=== PATIENT | female | born 1995 | race Caucasian/White ===

== ENCOUNTER 2019-05-26 14:54 | Emergency (ER) | payer OTHER, SELFPAY ==
[2019-05-26 14:55] VITALS: BP 132/64; PULSE 82; RESP 14; TEMP 36.9; O2SAT 99
--- NOTE | 2019-05-26 15:26 | ED_ITS ---
HPI - Nausea/Vomiting/Diarrhea <BRIGITTE Beckman - Last Filed: 05/26/19 17:56> General Chief complaint: Nausea/Vomiting/Diarrhea Stated complaint: BAD DIARRHEA STOMACH PAIN Time Seen by Provider: 05/26/19 14:55 Source: patient Mode of arrival: Ambulatory Limitations: no limitations History of Present Illness HPI Narrative: The patient is a 23-year-old female nonsmoker who denies any p ertinent medical history presents with a chief complaint of diarrhea onset this morning. She states she has had 7-8 episodes of watery diarrhea throughout the day. She has not taken anything to feel better at home. She denies any fevers. She complains of nausea, no vomiting. She wonders if is related to the fast food that she ate last night. She complains of abdominal cramping, only associated with diarrhea episodes. She denies any possibility of . She denies any dysuria urgency or frequency. Related Data Home Medications Medication Instructions Recorded Confirmed clindamycin phosphate 1 applic TOPICAL DIRECTED 05/26/19 05/26/19 Previous Rx's Medication Instructions Recorded ondansetron 4 mg PO Q8H PRN #20 tab 05/26/19 Allergies Allergy/AdvReac Type Severity Reaction Status Date / Time No Known Drug Allergies Allergy Verified 05/26/19 15:02 Review of Systems <BRIGITTE Beckman - Last Filed: 05/26/19 17:56> Constitutional Constitutional: Denies chills, Denies fever(s), Denies lethargy and Denies weakness Respiratory Respiratory: Reports system reviewed and no additional complaints, except as docu Gastrointestinal Gastrointestinal: Reports as per HPI Genitourinary Genitourinary: Reports system reviewed and no additional complaints, except as docu Musculoskeletal Musculoskeletal: Reports system reviewed and no additional complaints, except as docu Integumentary/Breasts Skin/Breast: Reports system reviewed and no additional complaints, except as do cu Neurologic Neurologic: Reports system reviewed and no additional complaints, except as docu and Denies weakness Psychiatric Psychiatric: Reports system reviewed and no additional complaints, except as docu Endocrine Endocrine: Reports system reviewed and no additional complaints, except as docu Hematologic/Lymphatic Hematologic/Lymphatic: Reports system reviewed and no additional complaints, except as docu Patient History <BRIGITTE BeckmanJONATHAN - Last Filed: 05/26/19 17:56> Social History Smoking Status: Unknown if ever smoked alcohol intake frequency: holidays/special occasions only Substance Use Type: does not use Exam <NATALIE Beckman - Last Filed: 05/26/19 17:56> Initial Vital Signs Initial Vital Signs: Vital Signs Temperature 98.5 F 05/26/19 14:55 Pulse Rate 82 05/26/19 14:55 Respiratory Rate 14 05/26/19 14:55 Blood Pressure 132/64 05/26/19 14:55 Pulse Oximetry 99 05/26/19 14:55 Const General: cooperative and healthy appearing Nutritional Appearance: well nourished Orientation: alert, awake, oriented x3 and not confused HENMT Head: normocephalic and atraumatic Ears: external ears normal and TM's normal bilaterally Nose: external nose normal and No nasal discharge Face and sinus: sinuses nontender, face symmetric, no sinus tenderness and No dry mucous membranes Mouth: oral mucosae normal and moist mucous membranes Teeth and gingiva: dentition normal Throat: tonsils normal and uvula midline Chest Chest: normal inspection of the chest Resp Effort & Inspection: normal respiratory effort, able to speak in complete sentences, no respiratory distress and no use of accessory muscles Auscultation: clear to auscultation bilaterally, no rales, no rhonchi and no wh eezes Cardio Rate: regular rate Rhythm: regular rhythm Heart Sounds: no click, no gallops, no murmurs and no rubs Pulses: normal peripheral pulses GI Inspection: normal to inspection Palpation: soft Auscultation: normal bowel sounds <Eugene Sprague DO - Last Filed: 05/27/19 07:03> Initial Vital Signs Initial Vital Signs: Vital Signs Temperature 98.5 F 05/26/19 14:55 Pulse Rate 82 05/26/19 14:55 Respiratory Rate 14 05/26/19 14:55 Blood Pressure 132/64 05/26/19 14:55 Pulse Oximetry 99 05/26/19 14:55 Course <BRIGITTE Beckman - Last Filed: 05/26/19 17:56> Orders Ordered: Discontinued Medications Sodium Chloride (Normal Saline 0.9%) 1,000 mls @ 1,000 mls/hr IV BOLUS ONE Stop: 05/26/19 16:03 Last Infusion: 05/26/19 16:48 Dose: 0 mls/hr Documented by: Admin: 05/26/19 15:31 Dose: 1,000 mls/hr Documented by: KARSON Ondansetron HCl (Zofran) 4 mg IV NOW ONE Stop: 05/26/19 15:05 Last Admin: 05/26/19 15:31 Dose: 4 mg Documented by: KARSON Vital Signs Vital signs: Vital Signs - 8 hr 05/26/19 14:55 Temperature 98.5 F Pulse Rate 82 Respiratory Rate 14 Blood Pressure 132/64 Pulse Oximetry 99 <Eugene Sprague DO - Last Filed: 05/27/19 07:03> Orders Ordered: Discontinued Medications Sodium Chloride (Normal Saline 0.9%) 1,000 mls @ 1,000 mls/hr IV BOLUS ONE Stop: 05/26/19 16:03 Last Infusion: 05/26/19 16:48 Dose: 0 mls/hr Documented by: Admin: 05/26/19 15:31 Dose: 1,000 mls/hr Documented by: KARSON Ondansetron HCl (Zofran) 4 mg IV NOW ONE Stop: 05/26/19 15:05 Last Admin: 05/26/19 15:31 Dose: 4 mg Documented by: KARSON Vital Signs Vital signs: Vital Signs - 8 hr 05/26/19 14:55 Temperature 98.5 F Pulse Rate 82 Respiratory Rate 14 Blood Pressure 132/64 Pulse Oximetry 99 MDM - Nausea/Vomiting/Diarrhea <NATALIE Beckman - Last Filed: 05/26/19 17:56> Lab Data Result diagrams: 05/26/19 15:49 05/26/19 15:04 Labs: Lab Results 05/26/19 05/26/19 05/26/19 Range/Units 15:04 15:10 15:10 WBC (4.5-11.0) X10^3/uL RBC (4.0-5.2) X10^6/uL Hgb (12.0-16.0) g/dL Hct (36-46) % MCV (80-100) fL MCH (26-34) PG MCHC (30-36) % RDW (11.6-14.8) % Plt Count (150-400) X10^3/uL Neut % (Auto) (50-75) % Lymph % (Auto) (25-40) % [place] % (Auto) (3-14) % Eos % (Auto) (2-4) % Baso % (Auto) (0-2) % Neut # (Auto) (5904-4663) /uL Lymph # (Auto) (0350-1254) /uL [place] # (Auto) (0-900) /uL Eos # (Auto) (0-450) /uL Baso # (Auto) (0-100) /uL Sodium 141 (137-145) mmol/L Potassium 3.9 (3.4-5.1) mmol/L Chloride 107 (98-107) mmol/L Carbon Dioxide 21 L (22-32) mmol/L BUN 10 (7-17) mg/dL Creatinine 0.60 (0.52-1.04) mg/dL Estimated GFR > 60.0 (>60) mL/min BUN/Creatinine Ratio 16.7 (6-22) Glucose 89 (70-100) mg/dL Calcium 9.9 (8.4-10.2) mg/dL Total Bilirubin 0.5 (0.2-1.3) mg/dL AST 36 (14-36) IU/L ALT 18 (9-52) IU/L Alkaline Phosphatase 89 (38-126) U/L Total Protein 9.1 H (6.3-8.2) g/dL Albumin 5.1 H (3.5-5.0) g/dL Globulin 4.0 (1.7-4.1) g/dL Albumin/Globulin Ratio 1.3 (1.0-2.8) Lipase 88 (23-300) U/L Urine RBC (0-5/HPF) Urine WBC (0-5/HPF) Ur Squamous Epith Cells (0-5/HPF) Urine Bacteria (None) Ur Culture Indicated? Stool Occult Blood Negative (Negative) Stl C. cayetanensis PCR Not detected (Not Detect) Stool Rotavirus (PCR) Not detected (Not Detect) Stool Adenovirus (PCR) Not detected (Not Detect) Stool Astrovirus (PCR) Not detected (Not Detect) Stool Cryptosporidium PCR Not detected (Not Detect) Stl E.coli Shiga Tox PCR Not detected (Not Detect) St Sh/Enteroin Ecoli PCR Not detected (Not Detect) Stool E coli O157 PCR Not Reportable Stl Enterotoxigenic E PCR Not detected (Not Detect) Stool EPEC (PCR) Not detected (Not Detect) Stl E. histolytica PCR Not detected (Not Detect) Stool Giardia Lamblia PCR Not detected (Not Detect) Stool Sapovirus (PCR) Not detected (Not Detect) Stl P. shigelloides PCR Not detected (Not Detect) St Y.enterocolitica PCR Not detected (Not Detect) Stool Vibrio (PCR) Not detected (Not Detect) Stl Vibrio cholerae PCR Not detected (Not Detect) Stl Enteroaggr Ecoli PCR Not detected (Not Detect) Stl Norovirus GI/GII PCR Not detected (Not Detect) Campylobacter (PCR) Not detected (Not Detect) C. difficile Tox (PCR) Not detected (Not Detect) Salmonella (PCR) Not detected (Not Detect) 05/26/19 05/26/19 Range/Units 15:49 15:49 WBC 15.1 H (4.5-11.0) X10^3/uL RBC 5.38 H (4.0-5.2) X10^6/uL Hgb 12.7 (12.0-16.0) g/dL Hct 39.5 (36-46) % MCV 73.5 L (80-100) fL MCH 23.5 L (26-34) PG MCHC 32.0 (30-36) % RDW 17.7 H (11.6-14.8) % Plt Count 257 (150-400) X10^3/uL Neut % (Auto) 81.4 H (50-75) % Lymph % (Auto) 10.9 L (25-40) % [place] % (Auto) 6.9 (3-14) % Eos % (Auto) 0.4 L (2-4) % Baso % (Auto) 0.4 (0-2) % Neut # (Auto) 16599 H (9630-1169) /uL Lymph # (Auto) 1600 (1658-9535) /uL [place] # (Auto) 1000 H (0-900) /uL Eos # (Auto) 100 (0-450) /uL Baso # (Auto) 100 (0-100) /uL Sodium (137-145) mmol/L Potassium (3.4-5.1) mmol/L Chloride (98-107) mmol/L Carbon Dioxide (22-32) mmol/L BUN (7-17) mg/dL Creatinine (0.52-1.04) mg/dL Estimated GFR (>60) mL/min BUN/Creatinine Ratio (6-22) Glucose (70-100) mg/dL Calcium (8.4-10.2) mg/dL Total Bilirubin (0.2-1.3) mg/dL AST (14-36) IU/L ALT (9-52) IU/L Alkaline Phosphatase (38-126) U/L Total Protein (6.3-8.2) g/dL Albumin (3.5-5.0) g/dL Globulin (1.7-4.1) g/dL Albumin/Globulin Ratio (1.0-2.8) Lipase (23-300) U/L Urine RBC 1-5/hpf (0-5/HPF) Urine WBC 1-5/hpf (0-5/HPF) Ur Squamous Epith Cells 0-1 /hpf (0-5/HPF) Urine Bacteria Few (2-10) H (None) Ur Culture Indicated? Cult not indicated Stool Occult Blood (Negative) Stl C. cayetanensis PCR (Not Detect) Stool Rotavirus (PCR) (Not Detect) Stool Adenovirus (PCR) (Not Detect) Stool Astrovirus (PCR) (Not Detect) Stool Cryptosporidium PCR (Not Detect) Stl E.coli Shiga Tox PCR (Not Detect) St Sh/Enteroin Ecoli PCR (Not Detect) Stool E coli O157 PCR Stl Enterotoxigenic E PCR (Not Detect) Stool EPEC (PCR) (Not Detect) Stl E. histolytica PCR (Not Detect) Stool Giardia Lamblia PCR (Not Detect) Stool Sapovirus (PCR) (Not Detect) Stl P. shigelloides PCR (Not Detect) St Y.enterocolitica PCR (Not Detect) Stool Vibrio (PCR) (Not Detect) Stl Vibrio cholerae PCR (Not Detect) Stl Enteroaggr Ecoli PCR (Not Detect) Stl Norovirus GI/GII PCR (Not Detect) Campylobacter (PCR) (Not Detect) C. difficile Tox (PCR) (Not Detect) Salmonella (PCR) (Not Detect) Point of Care Testing Test Results Negative Urine Dip Bedside Urine Glucose Negative Bedside Urine Bilirubin - Negative Bedside Urine Ketone - Negative Urine Specific [place] 1.020 Bedside Urine Occult Blood +/- Bedside Urine pH 5.5 Bedside Urine Protein - Negative Bedside Urine Urobilinogen - Negative Bedside Urine Nitrite - Negative Bedside Urine Leukocytes - Negative Esterase MDM Narrative Medical decision making narrative: The patient is a 23-year-old female who presents to the emergency department for chief complaint of diarrhea 7 times today. She was given IV fluids, Zofran and labs are grossly normal. She has slight leukocytosis, that this could be a stress response to multiple episodes of diarrhea. The patient requested to leave after 1 L of IV fluid and a dose of Zofran. Her stool studies came back normal. I discussed at length importance of following up with primary care provider, coming back to the emergency department for any acute concerns such as fever with abdominal pain etc. Patient has no questions or concerns upon discharge and states understanding of return precautions as well as follow-up care. <Eugene Sprague DO - Last Filed: 05/27/19 07:03> Lab Data Labs: Lab Results 05/26/19 05/26/19 05/26/19 Range/Units 15:04 15:10 15:10 WBC (4.5-11.0) X10^3/uL RBC (4.0-5.2) X10^6/uL Hgb (12.0-16.0) g/dL Hct (36-46) % MCV (80-100) fL MCH (26-34) PG MCHC (30-36) % RDW (11.6-14.8) % Plt Count (150-400) X10^3/uL Neut % (Auto) (50-75) % Lymph % (Auto) (25-40) % [place] % (Auto) (3-14) % Eos % (Auto) (2-4) % Baso % (Auto) (0-2) % Neut # (Auto) (5013-5376) /uL Lymph # (Auto) (7534-5253) /uL [place] # (Auto) (0-900) /uL Eos # (Auto) (0-450) /uL Baso # (Auto) (0-100) /uL Sodium 141 (137-145) mmol/L Potassium 3.9 (3.4-5.1) mmol/L Chloride 107 (98-107) mmol/L Carbon Dioxide 21 L (22-32) mmol/L BUN 10 (7-17) mg/dL Creatinine 0.60 (0.52-1.04) mg/dL Estimated GFR > 60.0 (>60) mL/min BUN/Creatinine Ratio 16.7 (6-22) Glucose 89 (70-100) mg/dL Calcium 9.9 (8.4-10.2) mg/dL Total Bilirubin 0.5 (0.2-1.3) mg/dL AST 36 (14-36) IU/L ALT 18 (9-52) IU/L Alkaline Phosphatase 89 (38-126) U/L Total Protein 9.1 H (6.3-8.2) g/dL Albumin 5.1 H (3.5-5.0) g/dL Globulin 4.0 (1.7-4.1) g/dL Albumin/Globulin Ratio 1.3 (1.0-2.8) Lipase 88 (23-300) U/L Urine RBC (0-5/HPF) Urine WBC (0-5/HPF) Ur Squamous Epith Cells (0-5/HPF) Urine Bacteria (None) Ur Culture Indicated? Stool Occult Blood Negative (Negative) Stl C. cayetanensis PCR Not detected (Not Detect) Stool Rotavirus (PCR) Not detected (Not Detect) Stool Adenovirus (PCR) Not detected (Not Detect) Stool Astrovirus (PCR) Not detected (Not Detect) Stool Cryptosporidium PCR Not detected (Not Detect) Stl E.coli Shiga Tox PCR Not detected (Not Detect) St Sh/Enteroin Ecoli PCR Not detected (Not Detect) Stool E coli O157 PCR Not Reportable Stl Enterotoxigenic E PCR Not detected (Not Detect) Stool EPEC (PCR) Not detected (Not Detect) Stl E. histolytica PCR Not detected (Not Detect) Stool Giardia Lamblia PCR Not detected (Not Detect) Stool Sapovirus (PCR) Not detected (Not Detect) Stl P. shigelloides PCR Not detected (Not Detect) St Y.enterocolitica PCR Not detected (Not Detect) Stool Vibrio (PCR) Not detected (Not Detect) Stl Vibrio cholerae PCR Not detected (Not Detect) Stl Enteroaggr Ecoli PCR Not detected (Not Detect) Stl Norovirus GI/GII PCR Not detected (Not Detect) Campylobacter (PCR) Not detected (Not Detect) C. difficile Tox (PCR) Not detected (Not Detect) Salmonella (PCR) Not detected (Not Detect) 05/26/19 05/26/19 Range/Units 15:49 15:49 WBC 15.1 H (4.5-11.0) X10^3/uL RBC 5.38 H (4.0-5.2) X10^6/uL Hgb 12.7 (12.0-16.0) g/dL Hct 39.5 (36-46) % MCV 73.5 L (80-100) fL MCH 23.5 L (26-34) PG MCHC 32.0 (30-36) % RDW 17.7 H (11.6-14.8) % Plt Count 257 (150-400) X10^3/uL Neut % (Auto) 81.4 H (50-75) % Lymph % (Auto) 10.9 L (25-40) % [place] % (Auto) 6.9 (3-14) % Eos % (Auto) 0.4 L (2-4) % Baso % (Auto) 0.4 (0-2) % Neut # (Auto) 80981 H (2797-6227) /uL Lymph # (Auto) 1600 (9839-7238) /uL [place] # (Auto) 1000 H (0-900) /uL Eos # (Auto) 100 (0-450) /uL Baso # (Auto) 100 (0-100) /uL Sodium (137-145) mmol/L Potassium (3.4-5.1) mmol/L Chloride (98-107) mmol/L Carbon Dioxide (22-32) mmol/L BUN (7-17) mg/dL Creatinine (0.52-1.04) mg/dL Estimated GFR (>60) mL/min BUN/Creatinine Ratio (6-22) Glucose (70-100) mg/dL Calcium (8.4-10.2) mg/dL Total Bilirubin (0.2-1.3) mg/dL AST (14-36) IU/L ALT (9-52) IU/L Alkaline Phosphatase (38-126) U/L Total Protein (6.3-8.2) g/dL Albumin (3.5-5.0) g/dL Globulin (1.7-4.1) g/dL Albumin/Globulin Ratio (1.0-2.8) Lipase (23-300) U/L Urine RBC 1-5/hpf (0-5/HPF) Urine WBC 1-5/hpf (0-5/HPF) Ur Squamous Epith Cells 0-1 /hpf (0-5/HPF) Urine Bacteria Few (2-10) H (None) Ur Culture Indicated? Cult not indicated Stool Occult Blood (Negative) Stl C. cayetanensis PCR (Not Detect) Stool Rotavirus (PCR) (Not Detect) Stool Adenovirus (PCR) (Not Detect) Stool Astrovirus (PCR) (Not Detect) Stool Cryptosporidium PCR (Not Detect) Stl E.coli Shiga Tox PCR (Not Detect) St Sh/Enteroin Ecoli PCR (Not Detect) Stool E coli O157 PCR Stl Enterotoxigenic E PCR (Not Detect) Stool EPEC (PCR) (Not Detect) Stl E. histolytica PCR (Not Detect) Stool Giardia Lamblia PCR (Not Detect) Stool Sapovirus (PCR) (Not Detect) Stl P. shigelloides PCR (Not Detect) St Y.enterocolitica PCR (Not Detect) Stool Vibrio (PCR) (Not Detect) Stl Vibrio cholerae PCR (Not Detect) Stl Enteroaggr Ecoli PCR (Not Detect) Stl Norovirus GI/GII PCR (Not Detect) Campylobacter (PCR) (Not Detect) C. difficile Tox (PCR) (Not Detect) Salmonella (PCR) (Not Detect) Point of Care Testing Test Results Negative Urine Dip Bedside Urine Glucose Negative Bedside Urine Bilirubin - Negative Bedside Urine Ketone - Negative Urine Specific [place] 1.020 Bedside Urine Occult Blood +/- Bedside Urine pH 5.5 Bedside Urine Protein - Negative Bedside Urine Urobilinogen - Negative Bedside Urine Nitrite - Negative Bedside Urine Leukocytes - Negative Esterase Discharge Plan Departure Patient Disposition: Home Clinical Impression: Diarrhea Qualifiers: Diarrhea type: unspecified type Qualified Code(s): R19.7 - Diarrhea, unspecified Discharge Date/Time: 05/26/19 18:06 Instructions: DI for Diarrhea and Traveler's Diarrhea -- Adult Activity Restrictions/Additional Instructions: Today your lab work came back mostly normal. You have felt better after IV flui ds and nausea medication. I have given her prescription of this nausea medication. Please rest and push fluids. Please come back to emergency department for any acute concerns. Prescriptions: New ondansetron 4 mg tablet,disintegrating 4 mg PO Q8H PRN (Reason: nausea and vomiting) Qty: 20 RF: 0 No Action clindamycin phosphate 1 % swab 1 applic TOPICAL DIRECTED RF: 0 Referrals: [facility] [Provider Group] Stand Alone Forms: Work Release Note
[2019-05-26] MEDS: ONDANSETRON 4 MG/2 ML INJ IV (15:31)
[2019-05-26] MEDS: SODIUM CHLORIDE 0.9% 1,000 ML 1000 ML IV (15:31)
[2019-05-26 15:48] LABS: Add Manual Diff / Slide Review NO; Basophils Absolute Auto 100 /uL (0-100); Basophils Percent Auto 0.4 % (0-2); Eosinophils Absolute Auto 100 /uL (0-450); Eosinophils Percent Auto 0.4 % (2-4); Hematocrit 39.5 % (36-46); Hemoglobin 12.7 g/dL (12.0-16.0); Lymphocytes Absolute Auto 1600 /uL (1100-4500); Lymphocytes Percent Auto 10.9 % (25-40); Mean Corpuscular Hemoglobin 23.5 PG (26-34); Mean Corpuscular Volume 73.5 fL (80-100); Monocytes Absolute Auto 1000 /uL (0-900); Monocytes Percent Auto 6.9 % (3-14); Neutrophils Absolute Auto 12300 /uL (1500-7000); Neutrophils Percent Auto 81.4 % (50-75); Platelet Count 257 X10^3/uL (150-400); Red Blood Cell Count 5.38 X10^6/uL (4.0-5.2); Red Cell Distribution Width 17.7 % (11.6-14.8); White Blood Cell Count 15.1 X10^3/uL (4.5-11.0)
[2019-05-26 16:04] LABS: Occult Blood 1 Negative (Negative)
[2019-05-26 16:16] LABS: Bacteria Urine Few (2-10); RBC Urine 1-5/HPF (0-5/HPF); Squamous Epithelial Cell Urine 0-1 /HPF (0-5/HPF); WBC Urine 1-5/HPF (0-5/HPF)
[2019-05-26 16:17] LABS: Culture Indicated Urine Cult Not Indicated
[2019-05-26 16:40] LABS: Alanine Aminotransferase 18 IU/L (9-52); Albumin 5.1 g/dL (3.5-5.0); Albumin Globulin Ratio 1.3 (1.0-2.8); Alkaline Phosphatase 89 U/L (38-126); Aspartate Aminotransferase 36 IU/L (14-36); BUN Creatinine Ratio 16.7 (6-22); Bilirubin Total 0.5 mg/dL (0.2-1.3); Blood Urea Nitrogen 10 mg/dL (7-17); Calcium 9.9 mg/dL (8.4-10.2); Carbon Dioxide 21 mmol/L (22-32); Chloride 107 mmol/L (98-107); Estimated Glomerular Filt Rate > 60.0 mL/min (>60); Glucose 89 mg/dL (70-100); HEMOLYSIS 17 (0-50); Lipase 88 U/L (23-300); Potassium 3.9 mmol/L (3.4-5.1); Sodium 141 mmol/L (137-145); Total Protein 9.1 g/dL (6.3-8.2)
[2019-05-26 16:43] LABS: Adenovirus F 40/41 Not Detected (Not Detect); Astrovirus Not Detected (Not Detect); Campylobacter Not Detected (Not Detect); Clostridium difficile toxin AB Not Detected (Not Detect); Cryptosporidium Not Detected (Not Detect); Cyclospora cayetanensis Not Detected (Not Detect); Entamoeba histolytica Not Detected (Not Detect); Enteroaggregative E.coli Not Detected (Not Detect); Enteropathogenic E.coli Not Detected (Not Detect); Enterotoxigenic E.coli It/st Not Detected (Not Detect); Giardia lamblia Not Detected (Not Detect); Norovirus GI/GII Not Detected (Not Detect); Plesiomonsa shigelloides Not Detected (Not Detect); Rotavirus A Not Detected (Not Detect); Salmonella Not Detected (Not Detect); Sapovirus Not Detected (Not Detect); Shiga-like toxin-prod E.coli Not Detected (Not Detect); Shigella/Enteroinvasive E.coli Not Detected (Not Detect); Vibrio Not Detected (Not Detect); Vibrio cholerae Not Detected (Not Detect); Yersinia enterocolitica Not Detected (Not Detect)
== END 2019-05-26 18:06 | disposition home or self-care (01) ==
PROVIDERS: Emergency Provider Nurse Practitioner Family
DX: R19.7 Diarrhea, unspecified (principal)
CPT/HCPCS: 36415; 80053; 81003; 81015; 81025; 82270; 83690; 85025; 87507; 96361; 96374; 99283; 99284; J2405

== ENCOUNTER 2021-02-27 23:16 | Emergency (ER) | payer OTHER, SELFPAY ==
[2021-02-27 23:16] VITALS: BP 126/78; PULSE 78; RESP 16; TEMP 36.4; O2SAT 99; BMI 27.4
--- NOTE | 2021-02-27 23:30 | ED.GENADULT ---
HPI - General Adult General Chief complaint: Ear Stated complaint: right ear pain Time Seen by Provider: 02/27/21 23:30 Source: patient Mode of arrival: Ambulatory History of Present Illness HPI narrative: Patient is here for evaluation of right ear discomfort, she also reports having sinus congestion, feel like there was liquid coming from her right ear, a cough. No fevers. No left ear pain. Related Data Home Medications Medication Instructions Recorded Confirmed clindamycin phosphate 1 % topical 1 applic TOPICAL DIRECTED 05/26/19 05/26/19 swab Previous Rx's Medication Instructions Recorded ondansetron 4 mg disintegrating 4 mg PO Q8H PRN #20 tab 05/26/19 tablet Allergies Allergy/AdvReac Type Severity Reaction Status Date / Time No Known Drug Allergies Allergy Verified 05/26/19 15:02 Review of Systems Constitutional Comments: No fevers ENT Comments: Left ear pain, sinus congestion, Respiratory Comments: Cough and no shortness of breath Integumentary/Breasts Comments: No rashes Hematologic/Lymphatic On Anticoagulants: No Patient History Medical History Healthy adult Social History Smoking Status: Unknown if ever smoked Smoking Status: Unknown if ever smoked alcohol intake frequency: holidays/special occasions only Substance Use Type: does not use Exam Initial Vital Signs Initial Vital Signs: Vital Signs Temperature 97.6 F 02/27/21 23:16 Pulse Rate 78 02/27/21 23:16 Respiratory Rate 16 02/27/21 23:16 Blood Pressure 126/78 02/27/21 23:16 Pulse Oximetry 99 02/27/21 23:16 Const General: cooperative HENMT Head: normal to inspection and normocephalic Ears: TM normal on the left, EAC's normal and TM abnormal bulging on the right Neck Neck: normal visual inspection Resp Auscultation: clear to auscultation bilaterally Cardio Rate: regular rate Rhythm: regular rhythm Skin General: no rashes or lesions noted Neuro General: patient alert, patient awake, patient oriented x3 and moves all extremities Extrem General: normal to inspection and capillary refill normal Psych Appearance: grossly normal and well kempt Course Vital Signs Vital signs: Vital Signs - 8 hr 02/27/21 23:16 Temperature 97.6 F Pulse Rate 78 Respiratory Rate 16 Blood Pressure 126/78 Pulse Oximetry 99 Medical Decision Making MDM Narrative Medical decision making narrative: Left ear and external auditory canal are unremarkable. The right tympanic membrane is bulging but there is no erythema. Her external auditory canal on the right is unremarkable. The rest her exam is unremarkable. I suspect that she does have a sinus congestion/upper respiratory infection that can be treated with [id number] antihistamine/decongestant. I did discuss this with her. No indication for antibiotics. She was given return precautions and follow-up instructions. She expressed understanding and agreement. Discharge Plan Departure Patient Disposition: Home Clinical Impression: Otitis media Instructions: DI for Ear Pain-Adult Activity Restrictions/Additional Instructions: You do have fluid behind the eardrum on the right. This is called serous otitis media. It does not appear to be infected. The ear canal also does not appear to be infected. We do need to start you on some antihistamines/decongestants. I recommend that you purchase either Claritin or Ally or Zyrtec or the generic versions of these medicines [id number]. I also recommend you purchase Flonase or Nasonex. You can also use Afrin. You can take Tylenol for any discomfort return to the emergency department for any new or worsening symptoms Prescriptions: No Action clindamycin phosphate 1 % swab 1 applic TOPICAL DIRECTED RF: 0 ondansetron 4 mg tablet,disintegrating 4 mg PO Q8H PRN (Reason: nausea and vomiting) Qty: 20 RF: 0
== END 2021-02-27 23:40 | disposition home or self-care (01) ==
PROVIDERS: Emergency Provider Emergency Medicine
DX: H66.92 Otitis media, unspecified, left ear (principal)
CPT/HCPCS: 99281

== ENCOUNTER 2021-04-30 17:51 | Emergency (ER) | payer OTHER, SELFPAY ==
[2021-04-30 18:41] VITALS: BP 133/68; PULSE 71; RESP 15; TEMP 36.7; O2SAT 99
--- NOTE | 2021-04-30 19:38 | ED.FEMALEGU ---
HPI - Female Genitourinary General Chief complaint: Urogenital-Female Stated complaint: Vaginal smell/irritation, off colored discharge Time Seen by Provider: 04/30/21 18:03 Source: patient Mode of arrival: Ambulatory Limitations: no limitations History of Present Illness HPI Narrative: This is a 25-year-old female who comes emergency department with complaint of some and irritation in off colored discharge that she appreciated in the last several days after she finished her menstruation. She states that the coloration has not normalized. And she has had some odor which is atypical for her. She is sexually active. She states she normally uses condoms. Her last sexual activity was 3 weeks ago. Patient denies fevers. She has had a little bit of suprapubic discomfort. She denies any back or flank pain. She denies any active vaginal bleeding. She states her menses are typically irregular and this episode lasted about 2 days. Patient otherwise healthy. No daily medications. No recent antibiotics. Patient has not had any major surgeries. She denies any allergies to medications. She has had Paps along with pelvic in the past. Related Data Home Medications Medication Instructions Recorded Confirmed clindamycin phosphate 1 % topical 1 applic TOPICAL DIRECTED 05/26/19 05/26/19 swab Previous Rx's Medication Instructions Recorded ondansetron 4 mg disintegrating 4 mg PO Q8H PRN #20 tab 05/26/19 tablet metronidazole 500 mg tablet 500 mg PO BID #14 tab 04/30/21 (Flagyl) Allergies Allergy/AdvReac Type Severity Reaction Status Date / Time No Known Drug Allergies Allergy Verified 05/26/19 15:02 Review of Systems Review of Systems ROS Unobtainable: All systems reviewed & are unremarkable except as noted in HPI and below Patient History Medical History Healthy adult alcohol intake frequency: holidays/special occasions only Substance Use Type: does not use Exam Narrative Exam Narrative: GENERAL: Alert and oriented x three, female in mild distress. HEENT: Head normocephalic, atraumatic, EOMI, pupils reactive, face symmetric, moist mucous membranes NECK: Supple, full range of motion CARDIOVASCULAR: Regular rate and rhythm without murmurs, rubs or gallops. RESPIRATORY: Breath sounds equal bilaterally, no wheezes rales or rhonchi. ABDOMEN: Soft, nontender. Normoactive bowel sounds all 4 quadrants. No guarding or rebound, rigidity, no mass : No CVA tenderness. Female: external vaginal exam is normal, no vaginal bleeding, positive for thin white vaginal discharge, no discharge from the cervix itself, no cervical motion tenderness, normal speculum exam, no adnexal tenderness/mass. Bimanual exam is normal, no enlarged or tender uterus. Non-gravid. EXTREMITIES: Normal range of motion. NEUROLOGICAL: Cranial nerves II through XII grossly intact. Moving all extremities SKIN: Warm, dry, no petechiae, no rashes or lesions. Initial Vital Signs Initial Vital Signs: Vital Signs Temperature 98.1 F 04/30/21 18:41 Pulse Rate 71 04/30/21 18:41 Respiratory Rate 15 04/30/21 18:41 Blood Pressure 133/68 04/30/21 18:41 Pulse Oximetry 99 04/30/21 18:41 Course Orders Ordered: ED Orders 04/30/21 21:15 Chlamydia/Gonoc/Myco Genital Stat Genital Culture Stat Wet Prep Tric BV Jahaira Stat Discontinued Medications Metronidazole (Metronidazole 500 Mg Tablet) 500 mg PO NOW ONE Stop: 04/30/21 21:19 Last Admin: 04/30/21 21:26 Dose: 500 mg Documented by: MARIANA Vital Signs Vital signs: Vital Signs - 8 hr 04/30/21 18:41 04/30/21 21:37 Temperature 98.1 F Pulse Rate 71 54 L Respiratory Rate 15 17 Blood Pressure 133/68 111/64 Pulse Oximetry 99 98 MDM - Female Genitourinary Lab Data Labs: Point of Care Testing Test Results Negative Urine Dip Bedside Urine Glucose Negative Bedside Urine Bilirubin - Negative Bedside Urine Ketone - Negative Urine Specific [place] 1.015 Bedside Urine Occult Blood - Negative Bedside Urine pH 7.0 Bedside Urine Protein - Negative Bedside Urine Urobilinogen - Negative Bedside Urine Nitrite - Negative Bedside Urine Leukocytes - Negative Esterase [facility] Narrative Medical decision making narrative: This is a 25 year old female who arrives with complaint of discharge and some odor which is atypical for her. Patient is sexually active but on exam appears to be more consistent with bacterial vaginosis. After discussion plan to cover patient with oral medication antibiotic she was offered intravaginal options as well. PCR testing is pending for gonorrhea/chlamydia and genital culture. Patient is aware that cultures were positive that she may need to return for treatment. Discharge Plan Departure Patient Disposition: Home Clinical Impression: Bacterial vaginosis Instructions: DI for Bacterial Vaginosis Activity Restrictions/Additional Instructions: I suspect you have a bacterial infection called bacterial vaginosis. Cultures were sent today that include gonorrhea/chlamydia as well as genital culture. These take 48-72 hours result and if they are positive in you are not being correctly treated with antibiotics you will be contacted to return or have antibiotics called in for you depending on the results. Take antibiotics until completely gone. Do not drink alcohol with this antibiotic as it will make you vomit. Prescription sent to [facility] pharmacy in [place]. Some antibiotics can cause your control to be less effective so be aware of this if you are sexually active. Please return for fevers, new or worsening abdominal, back or flank pain, persistent vomiting, lightheadedness or passing out or other new or concerning symptoms. Prescriptions: New metronidazole [Flagyl] 500 mg tablet 500 mg PO BID Qty: 14 RF: 0 No Action clindamycin phosphate 1 % swab 1 applic TOPICAL DIRECTED RF: 0 ondansetron 4 mg tablet,disintegrating 4 mg PO Q8H PRN (Reason: nausea and vomiting) Qty: 20 RF: 0 Referrals: Petey Florian [Primary Care Provider] -
[2021-04-30] MEDS: metroNIDAZOLE 500 MG TABLET PO (21:26)
[2021-04-30 21:37] VITALS: BP 111/64; PULSE 54; RESP 17; O2SAT 98
[2021-05-03 12:03] LABS: Chlamydia trachomatis Negative (Negative); Mycoplasma genitalium Negative (Negative); Neisseria gonorrhoeae Negative (Negative)
== END 2021-04-30 21:38 | disposition home or self-care (01) ==
PROVIDERS: Emergency Provider Emergency Medicine
DX: N76.0 Acute vaginitis (principal)
CPT/HCPCS: 81003; 81025; 87070; 87077; 87205; 87210; 87491; 87563; 87591; 99283